=== PATIENT | female | born 1995 | race Caucasian/White ===

== ENCOUNTER 2019-03-07 10:05 | Emergency (ER) | payer OTHER ==
--- NOTE | 2019-03-07 10:52 | EDPHY ---
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 No antecedent urinary abnormality other she does note intermittent vaginal spotting recently and currently. Positive nausea. No vomiting. No trauma. No lesions. No rash. REVIEW OF SYSTEMS: 10 systems reviewed and negative with the exception of the elements mentioned in the history of present illness PAST MEDICAL & SURGICAL HISTORY: prior nephrolithiasis history with spontaneous passage SOCIAL HISTORY:Works as a nurse at [address] [place] [address] PHYSICAL EXAM (Prior to examination, patient consented to physical exam, hands were washed and my usual and customary physical exam procedures followed) 1) GENERAL: Well-developed, well-nourished, alert and oriented. Appears uncomfortable 2) HEAD: Normocephalic, atraumatic 3) HEENT: Pupils equal, round, reactive to light bilaterally. Sclera anicteric. 4) NECK: Full range of motion, no meningeal signs. 5) LUNGS: Clear auscultation bilaterally, no wheezes, no rhonchi, no retractions. 6) HEART: Regular rate and rhythm, no murmur, no heave, no gallop. 7) ABDOMEN: No guarding, no rebound, no focal tenderness, negative McBurney's, negative Vann's, negative Rovsing's, negative peritoneal sign, 8) MUSCULOSKELETAL: Moving all extremities, no focal areas of tenderness, no obvious trauma. No peripheral edema or discoloration. 9) BACK: No CVA tenderness, no midline vertebral tenderness, no fluctuance, no step-off, no obvious trauma, no visual or palpable abnormality. 10) SKIN: No rash, no petechiae. 11) Psychiatric: Patient is oriented X 3, there is no agitation. DIFFERENTIAL DIAGNOSIS: In no particular order including but not limited to nephrolithiasis, ureterolithiasis, pyelonephritis - Personal History LMP (Females 10-55): IUD In Place Current Tetanus/Diphtheria Vaccine: No Current Tetanus Diphtheria and Acellular Pertussis (TDAP): No - Medical/Surgical History Hx Asthma: No Hx Chronic Respiratory Disease: No Hx Diabetes: No Hx Cardiac Disease: No Hx Renal Disease: No Hx Cirrhosis: No Hx Alcoholism: No Hx HIV/AIDS: No Hx Splenectomy or Spleen Trauma: No Other PMH: Hx kidney, ADHD, generalized anxiety d/o - Social History Smoking Status: Never smoked Constitutional: Initial Vital Signs Temperature (C) 36.5 C 03/07/19 10:08 Heart Rate 102 H 03/07/19 10:08 Respiratory Rate 16 03/07/19 10:08 Blood Pressure 150/103 H 03/07/19 10:08 O2 Sat (%) 97 03/07/19 10:08 O2 Delivery Mode Room Air Allergies/Adverse Reactions: Penicillins Allergy (Verified 03/07/19 10:07) Home Medications: Medication Instructions Recorded VYVANSE 03/07/19 levOFLOXACIN [levAQUIN (*)] 750 mg PO DAILY #5 tab 03/07/19 oxyCODONE/APAP 5/325 [Percocet 1 tab PO Q6 #10 tab 03/07/19 5/325] Medical Decision Making - Diagnostics Imaging Results: Imaging Impressions Abdomen/Pelvis CT 03/07/19 10:51 Impression: 1. Mild dilatation of the left renal collecting system suggesting either urinary tract infection or recently passed calculus. 2. Minimal right nephrolithiasis. Results called to Corey Alaniz PA-C, at 11:15 AM Attention: This CT examination is specifically designed to evaluate patients who are clinically suspected of having acute obstructive uropathy. This examination does not use radiographic contrast, and as such, provides only a limited evaluation of the abdomen, pelvis and retroperitoneum. If there is further clinical suspicion for pathological conditions other than obstructive uropathy, a complete CT evaluation of the abdomen and pelvis utilizing intravenous, oral, and rectal contrast should be considered. Images reviewed myself ED Course/Re-evaluation: 11:39 a.m.: Re-evaluation. Discussed the imaging results . Informed patient that she may have passed a stone already as she was noted to have dilatation of the left renal collection system. She is noted to have bacteriuria and pyuria. Urine has been cultured. Started on fluoroquinolone antibiotics for treatment of pyelonephritis. Fluoroquinolone precautions provided the patient. At discharge the patient is smiling, appears well, states that her pain is controlled, feels comfortable being discharged. Given work note. Patient feels comfortable being discharged. All questions and concerns addressed by myself. Patient given my usual and customary discharge precautions and instructions regarding their clinical impression. Care of patient under supervision of secondary supervising physician Dr Gomez . - Data Points Laboratory Results: Laboratory Results 03/07/19 10:50 03/07/19 10:50 03/07/19 03/07/19 03/07/19 10:50 10:50 10:20 WBC 8.06 10^3/uL 10^3/uL (3.80-9.50) RBC 4.76 10^6/uL 10^6/uL (4.18-5.33) Hgb 14.3 g/dL g/dL (12.6-16.3) Hct 40.8 % % (38.0-47.0) MCV 85.7 fL fL (81.5-99.8) MCH 30.0 pg pg (27.9-34.1) MCHC 35.0 g/dL g/dL (32.4-36.7) RDW 12.2 % % (11.5-15.2) Plt Count 316 10^3/uL 10^3/uL (150-400) MPV 10.3 fL fL (8.7-11.7) Neut % (Auto) 56.0 % % (39.3-74.2) Lymph % (Auto) 34.9 % % (15.0-45.0) [place] % (Auto) 6.7 % % (4.5-13.0) Eos % (Auto) 1.5 % % (0.6-7.6) Baso % (Auto) 0.7 % % (0.3-1.7) Nucleat RBC Rel Count 0.0 % % (0.0-0.2) Absolute Neuts (auto) 4.51 10^3/uL 10^3/uL (1.70-6.50) Absolute Lymphs (auto) 2.81 10^3/uL 10^3/uL (1.00-3.00) Absolute Monos (auto) 0.54 10^3/uL 10^3/uL (0.30-0.80) Absolute Eos (auto) 0.12 10^3/uL 10^3/uL (0.03-0.40) Absolute Basos (auto) 0.06 10^3/uL 10^3/uL (0.02-0.10) Absolute Nucleated RBC 0.00 10^3/uL 10^3/uL (0-0.01) Immature Gran % 0.2 % % (0.0-1.1) Immature Gran # 0.02 10^3/uL 10^3/uL (0.00-0.10) Sodium 138 mEq/L mEq/L (135-145) Potassium 3.9 mEq/L mEq/L (3.5-5.2) Chloride 104 mEq/L mEq/L (97-110) Carbon Dioxide 25 mEq/l mEq/l (22-31) Anion Gap 9 mEq/L mEq/L (6-14) BUN 14 mg/dL mg/dL (7-23) Creatinine 0.8 mg/dL mg/dL (0.6-1.0) Estimated GFR > 60 Glucose 91 mg/dL mg/dL (70-100) Calcium 9.4 mg/dL mg/dL (8.5-10.4) Urine Color YELLOW Urine Appearance MODERATELY TURBID Urine pH 5.0 (5.0-7.5) Ur Specific [place] 1.023 (1.002-1.030) Urine Protein 1+ H (NEGATIVE) Urine Ketones NEGATIVE (NEGATIVE) Urine Blood 3+ H (NEGATIVE) Urine Nitrate NEGATIVE (NEGATIVE) Urine Bilirubin NEGATIVE (NEGATIVE) Urine Urobilinogen NEGATIVE EU EU (0.2-1.0) Ur Leukocyte Esterase 2+ H (NEGATIVE) Urine RBC 50-182 /hpf H /hpf (0-3) Urine WBC 25-50 /hpf H /hpf (0-3) Ur Epithelial Cells TRACE /lpf /lpf (NONE-1+) Urine Bacteria 3+ /hpf H /hpf (NONE SEEN) Hyaline Casts 1-5 /lpf /lpf (0-1) Urine Mucus 2+ /lpf H /lpf (NONE-1+) Urine Glucose NEGATIVE (NEGATIVE) Urine Test 03/07/19 10:20 WBC RBC Hgb Hct MCV MCH MCHC RDW Plt Count MPV Neut % (Auto) Lymph % (Auto) Tw[place]gs % (Auto) Eos % (Auto) Baso % (Auto) Nucleat RBC Rel Count Absolute Neuts (auto) Absolute Lymphs (auto) Absolute Monos (auto) Absolute Eos (auto) Absolute Basos (auto) Absolute Nucleated RBC Immature Gran % Immature Gran # Sodium Potassium Chloride Carbon Dioxide Anion Gap BUN Creatinine Estimated GFR Glucose Calcium Urine Color Urine Appearance Urine pH Ur Specific [place] Urine Protein Urine Ketones Urine Blood Urine Nitrate Urine Bilirubin Urine Urobilinogen Ur Leukocyte Esterase Urine RBC Urine WBC Ur Epithelial Cells Urine Bacteria Hyaline Casts Urine Mucus Urine Glucose Urine Test NEGATIVE Medications Given: Discontinued Medications Hydromorphone HCl (Dilaudid) 0.5 mg IVP EDNOW ONE Stop: 03/07/19 11:50 Last Admin: 03/07/19 12:06 Dose: Not Given Sodium Chloride (Ns) 1,000 mls @ 0 mls/hr IV EDNOW ONE; Wide Open PRN Reason: Protocol Stop: 03/07/19 11:20 Last Admin: 03/07/19 11:25 Dose: 1,000 mls Ketorolac Tromethamine (Toradol) 15 mg IVP EDNOW ONE Stop: 03/07/19 11:20 Last Admin: 03/07/19 11:26 Dose: 15 mg Levofloxacin (Levaquin) 750 mg PO EDNOW ONE PRN Reason: Protocol Stop: 03/07/19 11:46 Last Admin: 03/07/19 11:58 Dose: 750 mg Oxycodone/Acetaminophen (Percocet 5/325) 1 tab PO EDNOW ONE Stop: 03/07/19 11:55 Last Admin: 03/07/19 11:57 Dose: 1 tab Departure - Departure Disposition: Home, Routine, Self-Care Clinical Impression: Acute pyelonephritis Condition: Good Instructions: Urinary Tract Infection in Women (ED) Additional Instructions: Return to the ER if you develop fever, chills, nausea, vomiting or any other symptoms that concern you. Referrals: Suraj Gillette MD [Medical Doctor] - 2-3 days, call for appt. (Dr. Walter Melton is a urologist) Stand Alone Forms: Work Excuse Prescriptions: levOFLOXACIN [levAQUIN (*)] 750 mg PO DAILY #5 tab oxyCODONE/APAP 5/325 [Percocet 5/325] 1 tab PO Q6 #10 tab
[2019-03-07] MEDS ORDERED: KETOROLAC 15 MG/1 ML SDV IVP ONE (11:19)
[2019-03-07] MEDS ORDERED: NS 1,000 ML IV ONE (11:19)
[2019-03-07 11:22] LABS: PLATELET COUNT 316 10^3/uL (150-400)
[2019-03-07] MEDS ORDERED: HYDROmorphONE/DILAUDID 1 MG/ML INJ IVP ONE (11:49)
[2019-03-07] MEDS ORDERED: OXYCODONE/APAP 5/325 TAB PO ONE (11:54)
[2019-03-07 12:30] VITALS: BP 135/92
== END 2019-03-07 12:27 | disposition home or self-care (01) ==
DX: N10 Acute pyelonephritis (principal)
CPT/HCPCS: 96374; J1885